=== PATIENT | male | born 1940 | race Caucasian/White ===

== ENCOUNTER 2017-01-02 09:08 | Inpatient (IN) | payer OTHER ==
[~2017-01-02] VITALS: Ht 152.4 cm; Wt 60.9 kg
[~2017-01-02 09:08] MED LIST: ADVAIR HFA120 INHALA IH; ALEVE220 M2 PO; ALLOPURINOL100 MG PO; AMLODIPINE BESYL5 MG PO; AMOX TR-K CLV1 EAC3 PO; ASPIRIN325 MG PO; CALCITRIOL0.25 MCG PO; COLCRYS0.6 MG PO; DUONEB 2.5-0.5 M3 ML PEP; ENDOCET 5-3251 EACH PO; FAMOTIDINE20 MG PO; FERROUS SULFAT325 MG PO; FOLIC ACID1 MG PO; GOUT; HEPARIN SO5000 UNITS SC; HYDROCODON-ACE1 EAC7 PO; PREDNISONE20 MG PO; PREDNISONE5 MG PO; SPIRIVA RESPIMAT4 GM IH; TAMSULOSIN HCL0.4 MG PO; THERAGRAN1 TABLET PO; TYLENOL REGULA325 MG PO; [UNRECOGNIZED DRUG - REMARK]
[2017-01-02 11:50] LABS: HEMATOCRIT 36.7 % (38.0-50.0); MCH 29.7 PG (29.0-34.0); MCHC 32.4 G/DL (30.0-36.0); MCV 91.5 FL (86-99); PLATELET COUNT 142 K/uL (156-360); RBC DIS.WIDTH-CV 14.3 % (11.8-14.6); RBC DIS.WIDTH-SD 48.5 % (39-53); RED BLOOD COUNT 4.01 M/uL (4.00-5.50); WHITE BLOOD COUNT 8.6 K/uL (4.1-10.2)
[2017-01-02 11:59] LABS: CHLORIDE 110 mEq/L (99-109); POTASSIUM 5.1 mEq/L (3.7-5.4); SODIUM 139 mEq/L (136-147)
[2017-01-02 12:00] LABS: GLUCOSE 101 mg/dL (70-99)
[2017-01-02 12:02] LABS: ANION GAP 9 MEQ/L (2-14)
[2017-01-02 12:04] LABS: GFR ESTIMATE (CALCULATED) 16 mL/min/
[2017-01-02 12:05] LABS: UREA NITROGEN (BUN) 44 mg/dL (9-23)
[2017-01-02 14:24] LABS: ERTH.SED.RATE 58 MM/HR (0-20)
[2017-01-02 14:34] LABS: C-REACTIVE PROTEIN 109.4 MG/L (0-10)
[2017-01-02 15:12] VITALS: BP 124/77
[2017-01-02 20:08] VITALS: BP 119/72
[2017-01-03] VITALS: BP 128/63
[2017-01-03 03:46] VITALS: BP 115/68
[2017-01-03 07:39] LABS: HEMATOCRIT 34.1 % (38.0-50.0); MCH 30.5 PG (29.0-34.0); MCHC 33.1 G/DL (30.0-36.0); MCV 91.9 FL (86-99); MEAN PLAT.VOLUME 9.7 uM^3 (9.0-12.4); PLATELET COUNT 144 K/uL (156-360); RBC DIS.WIDTH-CV 14.4 % (11.8-14.6); RBC DIS.WIDTH-SD 48.6 % (39-53); RED BLOOD COUNT 3.71 M/uL (4.00-5.50); WHITE BLOOD COUNT 4.9 K/uL (4.1-10.2)
[2017-01-03 08:04] LABS: ANION GAP 11 MEQ/L (2-14); CHLORIDE 109 MEQ/L (99-109); GFR ESTIMATE (CALCULATED) 18 mL/min/; GLUCOSE 140 mg/dL (70-99); POTASSIUM 5.4 MEQ/L (3.7-5.4); SAMPLE HEMOLYSIS CHECK 0; SAMPLE ICTERIC CHECK 0; SAMPLE LIPEMIA CHECK 0; SODIUM 137 MEQ/L (136-147); UREA NITROGEN (BUN) 46 mg/dL (9-23)
[2017-01-03 10:19] LABS: METH RESISTANT S AUREUS PCR NEGATIVE (NEGATIVE)
[2017-01-03 10:32] LABS: PROBE CHECK PASS; SPECIMEN PROCESSING CONTROL PASS
[2017-01-03 11:29] VITALS: BP 141/73
[2017-01-03 16:22] VITALS: BP 125/71
[2017-01-03 20:35] VITALS: BP 116/60
[2017-01-03 23:54] VITALS: BP 100/55
[2017-01-04 03:54] VITALS: BP 107/60
[2017-01-04 06:40] LABS: HEMATOCRIT 33.2 % (38.0-50.0); MCH 29.9 PG (29.0-34.0); MCHC 32.8 G/DL (30.0-36.0); MCV 91.2 FL (86-99); MEAN PLAT.VOLUME 9.7 uM^3 (9.0-12.4); PLATELET COUNT 184 K/uL (156-360); RBC DIS.WIDTH-CV 14.3 % (11.8-14.6); RBC DIS.WIDTH-SD 48.1 % (39-53); RED BLOOD COUNT 3.64 M/uL (4.00-5.50); WHITE BLOOD COUNT 10.5 K/uL (4.1-10.2)
[2017-01-04 07:09] LABS: ANION GAP 10 MEQ/L (2-14); CHLORIDE 111 MEQ/L (99-109); GFR ESTIMATE (CALCULATED) 16 mL/min/; GLUCOSE 144 mg/dL (70-99); POTASSIUM 5.1 MEQ/L (3.7-5.4); SAMPLE HEMOLYSIS CHECK 0; SAMPLE ICTERIC CHECK 0; SAMPLE LIPEMIA CHECK 0; SODIUM 141 MEQ/L (136-147); UREA NITROGEN (BUN) 60 mg/dL (9-23); VANCOMYCIN, TROUGH 10.8 MCG/ML (10-20)
[2017-01-04] MEDS ORDERED: COLCHICINE0.6 M1 PO (07:19)
[2017-01-04] MEDS ORDERED: PREDNISONE20 MG PO (07:20)
[2017-01-04 07:59] VITALS: BP 119/69
== END 2017-01-04 10:17 | disposition home or self-care (01) | DRG 554 ==
LOC: EME 09:08 → EDOF 13:20 → ENRESERV 13:22 → CANRESERV 13:22 → ENRESERV 13:32 → EDOF 13:33 → 3EAST 13:33 → EDOF 13:33 → 3EAST 13:33 → ENRESERV 13:59 → 3EAST 14:54
PROVIDERS: Emergency Medicine; Internal Medicine; Nurse Practitioner Adult Health
DX: M1A.9XX1 Chronic gout, unspecified, with tophus (tophi) (principal); E87.2 Acidosis; I12.9 Hypertensive chronic kidney disease with stage 1 through stage 4 chronic kidney disease, or unspecified chronic kidney disease; N18.4 Chronic kidney disease, stage 4 (severe); D69.6 Thrombocytopenia, unspecified; D64.9 Anemia, unspecified; M06.9 Rheumatoid arthritis, unspecified; Z79.899 Other long term (current) drug therapy; J44.9 Chronic obstructive pulmonary disease, unspecified; N40.0 Benign prostatic hyperplasia without lower urinary tract symptoms; M19.90 Unspecified osteoarthritis, unspecified site; Z60.2 Problems related to living alone; Z90.49 Acquired absence of other specified parts of digestive tract; Z87.891 Personal history of nicotine dependence; Z79.82 Long term (current) use of aspirin
CPT/HCPCS: 73130; 73218; 73560; 73630; 73718; 80048; 80069; 80202; 84550; 85027; 85651; 86140; 87040; 87070; 87075; 87077; 87147; 87186; 87205; 87641; 99281; 99285; J1956; J2270; J2405; J2920; J3370; S0028

== ENCOUNTER 2017-02-27 11:27 | Inpatient (IN) | payer OTHER ==
[~2017-02-27] VITALS: Ht 165.1 cm; Wt 66.7 kg
[~2017-02-27 11:27] MED LIST changes: +COLCHICINE0.6 M1 PO
[2017-02-27 12:59] LABS: HEMATOCRIT 26.9 % (38.0-50.0); MCH 29.9 PG (29.0-34.0); MCHC 32.3 G/DL (30.0-36.0); MCV 92.4 FL (86-99); MEAN PLAT.VOLUME 10.5 uM^3 (9.0-12.4); PLATELET COUNT 323 K/uL (156-360); RBC DIS.WIDTH-CV 15.1 % (11.8-14.6); RBC DIS.WIDTH-SD 51.9 % (39-53); RED BLOOD COUNT 2.91 M/uL (4.00-5.50); WHITE BLOOD COUNT 12.8 K/uL (4.1-10.2)
[2017-02-27 13:05] LABS: INTER. NORMALIZED RATIO 1.4; PROTHROMBIN TIME 15.9 SEC (10.2-12.9)
[2017-02-27 13:08] LABS: PTT 30.1 SEC (25-37)
[2017-02-27 13:10] LABS: CHLORIDE 105 mEq/L (99-109); POTASSIUM 5.3 mEq/L (3.7-5.4); SODIUM 139 mEq/L (136-147)
[2017-02-27 13:12] LABS: GLUCOSE 121 mg/dL (70-99)
[2017-02-27 13:13] LABS: ANION GAP 18 MEQ/L (2-14)
[2017-02-27 13:14] LABS: TOTAL BILIRUBIN 1.5 mg/dL (0.0-1.0)
[2017-02-27 13:16] LABS: ALKALINE PHOSPHATASE 112 IU/L (3-129); GFR ESTIMATE (CALCULATED) 9 mL/min/
[2017-02-27 13:28] LABS: UREA NITROGEN (BUN) 121 mg/dL (9-23)
[2017-02-27 16:05] LABS: BASE EXCESS -9.9 mEq/L (-3 to +3); BICARBONATE 13.3 mEq/L (22-26); CARBOXY HGB 1.3 % (0-5); PCO2 22 mm Hg (35-45); PO2 85 mm Hg (80-100); pH 7.39 (7.35-7.45)
[2017-02-27] MEDS ORDERED: LO-DOSE ASPIRIN81 M1 PO (16:05)
[2017-02-27] MEDS ORDERED: GABAPENTIN300 MG PO (16:05)
[2017-02-27 16:06] LABS: COMMENTS - BLOOD GASES A+C+; SITE RR
[2017-02-27] MEDS ORDERED: ULORIC80 MG PO (16:06)
[2017-02-27 16:07] LABS: TOTAL RESP RATE 16 resp/min
[2017-02-27] MEDS ORDERED: TYLENOL REGULA325 MG PO (16:07)
[2017-02-28 05:45] LABS: POTASSIUM 4.6 mEq/L (3.7-5.4); SODIUM 144 mEq/L (136-147)
[2017-02-28 05:51] LABS: GFR ESTIMATE (CALCULATED) 11 mL/min/
[2017-02-28 05:52] LABS: ALKALINE PHOSPHATASE 81 IU/L (3-129); CHLORIDE 117 mEq/L (99-109); GLUCOSE 88 mg/dL (70-99)
[2017-02-28 05:59] LABS: HEMATOCRIT 27.1 % (38.0-50.0); MCH 29.4 PG (29.0-34.0); MCHC 31.7 G/DL (30.0-36.0); MCV 92.5 FL (86-99); MEAN PLAT.VOLUME 10.2 uM^3 (9.0-12.4); PLATELET COUNT 229 K/uL (156-360); RBC DIS.WIDTH-CV 15.3 % (11.8-14.6); RBC DIS.WIDTH-SD 52.3 % (39-53); RED BLOOD COUNT 2.93 M/uL (4.00-5.50); WHITE BLOOD COUNT 6.8 K/uL (4.1-10.2)
[2017-02-28 06:14] LABS: UREA NITROGEN (BUN) 113 mg/dL (9-23)
[2017-02-28 06:18] LABS: ANION GAP 13 MEQ/L (2-14)
[2017-02-28 07:27] LABS: ADD MIUA? YES; BILIRUBIN NEGATIVE; BLOOD SMALL; COLOR YELLOW ((YELLOW)); GLUCOSE (STRIP) NEGATIVE; KETONES NEGATIVE; LEUKOCYTES TRACE; NITRITE NEGATIVE; PROTEIN (STRIP) NEGATIVE; SPECIFIC GRAVITY 1.014 (1.000-1.030)
[2017-02-28 07:37] LABS: BACTERIA 1+ /HPF; CALCIUM OXALATE CRYSTALS 1+ /HPF; EPITHELIAL CELLS RARE /HPF; MUCUS TRACE /LPF; RED BLOOD CELLS 0-5 /HPF (0-5); UCUL ADDED? NO; WHITE BLOOD CELLS 0-5 /HPF (0-5)
[2017-02-28 07:51] VITALS: BP 109/63
[2017-02-28 11:23] VITALS: BP 119/55
[2017-02-28 13:24] VITALS: BP 125/60
[2017-02-28 15:37] VITALS: BP 128/62
[2017-02-28 19:31] VITALS: BP 102/50
[2017-02-28 23:38] VITALS: BP 115/62
[2017-03-01 06:31] LABS: EOSINOPHIL (%) 1.3 % (0-5); EOSINOPHIL COUNT 0.1 K/uL (0-0.3); HEMATOCRIT 24.3 % (38.0-50.0); IMMATURE GRANULOCYTE (%) 0.8 % (0.0-0.7); IMMATURE GRANULOCYTE COUNT 0.1 K/uL; INSTRUMENT ABS NEUTROPHIL CT 4.9 K/uL; LYMPHOCYTE COUNT 0.6 K/uL (1.0-2.8); MCH 30.5 PG (29.0-34.0); MCHC 32.5 G/DL (30.0-36.0); MCV 93.8 FL (86-99); MEAN PLAT.VOLUME 10.3 uM^3 (9.0-12.4); MONOCYTE (%) 6.6 % (3-12); MONOCYTE COUNT 0.4 K/uL (0-0.8); NEUTROPHIL (%) 80.9 % (45-76); NEUTROPHIL COUNT 4.9 K/uL (1.8-6.4); PLATELET COUNT 233 K/uL (156-360); RBC DIS.WIDTH-CV 15.6 % (11.8-14.6); RBC DIS.WIDTH-SD 54.2 % (39-53); RED BLOOD COUNT 2.59 M/uL (4.00-5.50); WHITE BLOOD COUNT 6.1 K/uL (4.1-10.2)
[2017-03-01 07:41] VITALS: BP 115/57
[2017-03-01 07:49] LABS: ALKALINE PHOSPHATASE 78 IU/L (3-129); ANION GAP 13 MEQ/L (2-14); CHLORIDE 118 MEQ/L (99-109); GFR ESTIMATE (CALCULATED) 12 mL/min/; POTASSIUM 4.7 MEQ/L (3.7-5.4); SAMPLE HEMOLYSIS CHECK 0; SAMPLE ICTERIC CHECK 0; SAMPLE LIPEMIA CHECK 0; SODIUM 147 MEQ/L (136-147); TOTAL BILIRUBIN 1.1 MG/DL (0.0-1.0); VANCOMYCIN, TROUGH 12.7 MCG/ML (10-20)
[2017-03-01 07:50] LABS: GLUCOSE 120 mg/dL (70-99); UREA NITROGEN (BUN) 101 mg/dL (9-23)
[2017-03-01 14:09] VITALS: BP 116/59
[2017-03-01 15:25] VITALS: BP 117/59
[2017-03-01 20:58] VITALS: BP 121/60
[2017-03-01 21:04] VITALS: BP 121/60
[2017-03-02 00:22] VITALS: BP 115/54
[2017-03-02 04:31] VITALS: BP 109/55
[2017-03-02 06:47] LABS: EOSINOPHIL (%) 0.1 % (0-5); HEMATOCRIT 25.5 % (38.0-50.0); IMMATURE GRANULOCYTE (%) 1.3 % (0.0-0.7); IMMATURE GRANULOCYTE COUNT 0.1 K/uL; INSTRUMENT ABS NEUTROPHIL CT 5.8 K/uL; LYMPHOCYTE COUNT 0.6 K/uL (1.0-2.8); MCH 29.2 PG (29.0-34.0); MCHC 30.6 G/DL (30.0-36.0); MCV 95.5 FL (86-99); MEAN PLAT.VOLUME 10.1 uM^3 (9.0-12.4); MONOCYTE (%) 5.4 % (3-12); MONOCYTE COUNT 0.4 K/uL (0-0.8); NEUTROPHIL (%) 84.4 % (45-76); NEUTROPHIL COUNT 5.8 K/uL (1.8-6.4); PLATELET COUNT 267 K/uL (156-360); RBC DIS.WIDTH-CV 15.9 % (11.8-14.6); RBC DIS.WIDTH-SD 55.1 % (39-53); RED BLOOD COUNT 2.67 M/uL (4.00-5.50); WHITE BLOOD COUNT 6.8 K/uL (4.1-10.2)
[2017-03-02 07:22] LABS: ALKALINE PHOSPHATASE 67 IU/L (3-129); ANION GAP 11 MEQ/L (2-14); CHLORIDE 118 MEQ/L (99-109); GFR ESTIMATE (CALCULATED) 13 mL/min/; GLUCOSE 108 mg/dL (70-99); POTASSIUM 4.9 MEQ/L (3.7-5.4); SAMPLE HEMOLYSIS CHECK 0; SAMPLE ICTERIC CHECK 0; SAMPLE LIPEMIA CHECK 0; SODIUM 147 MEQ/L (136-147); UREA NITROGEN (BUN) 88 mg/dL (9-23)
[2017-03-02 07:33] LABS: TOTAL BILIRUBIN 0.8 MG/DL (0.0-1.0); VANCOMYCIN, TROUGH 19.2 MCG/ML (10-20)
[2017-03-02 08:00] VITALS: BP 122/56
[2017-03-02 12:17] LABS: POINT-OF-CARE METER ID UU14208753
[2017-03-02 15:30] VITALS: BP 135/66
[2017-03-02 19:09] VITALS: BP 124/58
[2017-03-02 23:14] VITALS: BP 126/60
[2017-03-03 04:53] VITALS: BP 128/64
[2017-03-03 06:34] LABS: HEMATOCRIT 25.9 % (38.0-50.0); MCH 30.4 PG (29.0-34.0); MCHC 31.7 G/DL (30.0-36.0); MCV 95.9 FL (86-99); PLATELET COUNT 313 K/uL (156-360); RBC DIS.WIDTH-CV 15.9 % (11.8-14.6); RBC DIS.WIDTH-SD 55.8 % (39-53); WHITE BLOOD COUNT 8.5 K/uL (4.1-10.2)
[2017-03-03 07:02] LABS: ALKALINE PHOSPHATASE 70 IU/L (3-129); ANION GAP 13 MEQ/L (2-14); CHLORIDE 121 MEQ/L (99-109); GFR ESTIMATE (CALCULATED) 14 mL/min/; GLUCOSE 82 mg/dL (70-99); POTASSIUM 5.1 MEQ/L (3.7-5.4); SAMPLE HEMOLYSIS CHECK 0; SAMPLE ICTERIC CHECK 0; SAMPLE LIPEMIA CHECK 0; SODIUM 148 MEQ/L (136-147); TOTAL BILIRUBIN 0.8 MG/DL (0.0-1.0); UREA NITROGEN (BUN) 83 mg/dL (9-23)
[2017-03-03 07:47] VITALS: BP 130/69
[2017-03-03 11:19] VITALS: BP 117/60
[2017-03-03 15:18] VITALS: BP 118/58
[2017-03-03 16:42] LABS: URIC ACID 8.2 mg/dL (3.1-9.2)
[2017-03-03 19:46] VITALS: BP 128/58
[2017-03-03 23:29] LABS: C DIFF TOXIN NEGATIVE (NEGATIVE)
[2017-03-03 23:32] LABS: PROBE CHECK PASS; SPECIMEN PROCESSING CONTROL PASS
[2017-03-03 23:42] VITALS: BP 142/72
[2017-03-04 00:22] VITALS: BP 134/74
[2017-03-04 04:41] VITALS: BP 134/67
[2017-03-04 06:37] LABS: EOSINOPHIL (%) 1.1 % (0-5); EOSINOPHIL COUNT 0.1 K/uL (0-0.3); HEMATOCRIT 26.6 % (38.0-50.0); IMMATURE GRANULOCYTE (%) 1.9 % (0.0-0.7); IMMATURE GRANULOCYTE COUNT 0.2 K/uL; INSTRUMENT ABS NEUTROPHIL CT 7.1 K/uL; LYMPHOCYTE COUNT 0.8 K/uL (1.0-2.8); MCH 29.2 PG (29.0-34.0); MCHC 30.5 G/DL (30.0-36.0); MEAN PLAT.VOLUME 9.7 uM^3 (9.0-12.4); MONOCYTE (%) 4.5 % (3-12); MONOCYTE COUNT 0.4 K/uL (0-0.8); NEUTROPHIL (%) 82.8 % (45-76); NEUTROPHIL COUNT 7.1 K/uL (1.8-6.4); PLATELET COUNT 296 K/uL (156-360); RBC DIS.WIDTH-CV 15.8 % (11.8-14.6); RBC DIS.WIDTH-SD 55.9 % (39-53); RED BLOOD COUNT 2.77 M/uL (4.00-5.50); WHITE BLOOD COUNT 8.5 K/uL (4.1-10.2)
[2017-03-04 06:57] LABS: ANION GAP 13 MEQ/L (2-14); CHLORIDE 118 MEQ/L (99-109); GFR ESTIMATE (CALCULATED) 15 mL/min/; GLUCOSE 100 mg/dL (70-99); MAGNESIUM 2.1 mg/dl (1.3-2.7); POTASSIUM 5.1 MEQ/L (3.7-5.4); SAMPLE HEMOLYSIS CHECK 0; SAMPLE ICTERIC CHECK 0; SAMPLE LIPEMIA CHECK 0; SODIUM 148 MEQ/L (136-147); UREA NITROGEN (BUN) 68 mg/dL (9-23)
[2017-03-04 07:54] VITALS: BP 148/79
[2017-03-04 15:27] VITALS: BP 122/61
[2017-03-04 19:15] VITALS: BP 121/63
[2017-03-04 23:32] VITALS: BP 117/60
[2017-03-05 06:53] LABS: HEMATOCRIT 29.7 % (38.0-50.0); MCHC 31.6 G/DL (30.0-36.0); MCV 94.9 FL (86-99); MEAN PLAT.VOLUME 9.5 uM^3 (9.0-12.4); PLATELET COUNT 291 K/uL (156-360); RBC DIS.WIDTH-CV 15.9 % (11.8-14.6); RBC DIS.WIDTH-SD 54.9 % (39-53); RED BLOOD COUNT 3.13 M/uL (4.00-5.50); WHITE BLOOD COUNT 9.1 K/uL (4.1-10.2)
[2017-03-05 07:21] LABS: GLUCOSE 129 mg/dL (70-99); UREA NITROGEN (BUN) 70 mg/dL (9-23)
[2017-03-05 07:22] LABS: ANION GAP 12 MEQ/L (2-14); CHLORIDE 118 MEQ/L (99-109); GFR ESTIMATE (CALCULATED) 17 mL/min/; MAGNESIUM 2.1 mg/dl (1.3-2.7); POTASSIUM 4.9 MEQ/L (3.7-5.4); SAMPLE HEMOLYSIS CHECK 0; SAMPLE ICTERIC CHECK 0; SAMPLE LIPEMIA CHECK 0; SODIUM 150 MEQ/L (136-147)
[2017-03-05 08:12] VITALS: BP 129/85
[2017-03-05 12:01] VITALS: BP 110/57
[2017-03-05 15:52] VITALS: BP 120/58
[2017-03-05 19:44] VITALS: BP 116/64
[2017-03-06] VITALS (7 sets, daily range): BP systolic 126–150; BP diastolic 62–72
[2017-03-06 06:52] LABS: HEMATOCRIT 31.8 % (38.0-50.0); MCH 28.8 PG (29.0-34.0); MCHC 30.2 G/DL (30.0-36.0); MCV 95.5 FL (86-99); MEAN PLAT.VOLUME 9.5 uM^3 (9.0-12.4); PLATELET COUNT 301 K/uL (156-360); RBC DIS.WIDTH-SD 56.7 % (39-53); RED BLOOD COUNT 3.33 M/uL (4.00-5.50)
[2017-03-06 10:20] LABS: ANION GAP 12 MEQ/L (2-14); CHLORIDE 117 MEQ/L (99-109); POTASSIUM 4.3 MEQ/L (3.7-5.4); SAMPLE HEMOLYSIS CHECK 0; SAMPLE ICTERIC CHECK 0; SAMPLE LIPEMIA CHECK 0; SODIUM 150 MEQ/L (136-147)
[2017-03-06 10:28] LABS: GFR ESTIMATE (CALCULATED) 18 mL/min/; UREA NITROGEN (BUN) 62 mg/dL (9-23)
[2017-03-06 10:31] LABS: GLUCOSE 86 mg/dL (70-99)
[2017-03-07 03:40] VITALS: BP 143/74
[2017-03-07 06:08] LABS: HEMATOCRIT 27.6 % (38.0-50.0); MCH 28.9 PG (29.0-34.0); MCHC 30.4 G/DL (30.0-36.0); MCV 94.8 FL (86-99); MEAN PLAT.VOLUME 8.8 uM^3 (9.0-12.4); PLATELET COUNT 263 K/uL (156-360); RBC DIS.WIDTH-CV 16.1 % (11.8-14.6); RBC DIS.WIDTH-SD 55.8 % (39-53); RED BLOOD COUNT 2.91 M/uL (4.00-5.50); WHITE BLOOD COUNT 7.6 K/uL (4.1-10.2)
[2017-03-07 06:32] LABS: ALKALINE PHOSPHATASE 42 IU/L (3-129); ANION GAP 9 MEQ/L (2-14); CHLORIDE 118 MEQ/L (99-109); GFR ESTIMATE (CALCULATED) 19 mL/min/; GLUCOSE 80 mg/dL (70-99); POTASSIUM 3.7 MEQ/L (3.7-5.4); SAMPLE HEMOLYSIS CHECK 0; SAMPLE ICTERIC CHECK 0; SAMPLE LIPEMIA CHECK 0; SODIUM 148 MEQ/L (136-147); TOTAL BILIRUBIN 0.9 MG/DL (0.0-1.0); UREA NITROGEN (BUN) 52 mg/dL (9-23)
[2017-03-07 08:45] VITALS: BP 139/68
[2017-03-07 11:52] VITALS: BP 132/64
[2017-03-07 16:08] VITALS: BP 124/74
[2017-03-07 19:18] VITALS: BP 132/61
[2017-03-07 22:54] VITALS: BP 128/82
[2017-03-08 04:10] VITALS: BP 146/70
[2017-03-08 06:54] LABS: EOSINOPHIL (%) 1.6 % (0-5); EOSINOPHIL COUNT 0.1 K/uL (0-0.3); HEMATOCRIT 28.5 % (38.0-50.0); IMMATURE GRANULOCYTE (%) 2.5 % (0.0-0.7); IMMATURE GRANULOCYTE COUNT 0.2 K/uL; INSTRUMENT ABS NEUTROPHIL CT 5.7 K/uL; LYMPHOCYTE COUNT 0.9 K/uL (1.0-2.8); MCH 29.8 PG (29.0-34.0); MCHC 30.9 G/DL (30.0-36.0); MCV 96.6 FL (86-99); MEAN PLAT.VOLUME 9.5 uM^3 (9.0-12.4); MONOCYTE (%) 4.6 % (3-12); MONOCYTE COUNT 0.3 K/uL (0-0.8); NEUTROPHIL (%) 78.2 % (45-76); NEUTROPHIL COUNT 5.7 K/uL (1.8-6.4); PLATELET COUNT 239 K/uL (156-360); RBC DIS.WIDTH-CV 16.3 % (11.8-14.6); RBC DIS.WIDTH-SD 57.8 % (39-53); RED BLOOD COUNT 2.95 M/uL (4.00-5.50); WHITE BLOOD COUNT 7.3 K/uL (4.1-10.2)
[2017-03-08 07:19] LABS: ANION GAP 11 MEQ/L (2-14); CHLORIDE 117 MEQ/L (99-109); GFR ESTIMATE (CALCULATED) 20 mL/min/; GLUCOSE 82 mg/dL (70-99); SAMPLE HEMOLYSIS CHECK 1; SAMPLE ICTERIC CHECK 0; SAMPLE LIPEMIA CHECK 0; SODIUM 146 MEQ/L (136-147); UREA NITROGEN (BUN) 44 mg/dL (9-23)
[2017-03-08 08:31] VITALS: BP 152/66
[2017-03-08 12:19] VITALS: BP 148/67
[2017-03-08 16:57] VITALS: BP 127/61
[2017-03-08 19:29] VITALS: BP 143/67
[2017-03-08 23:21] VITALS: BP 146/67
[2017-03-09 03:55] VITALS: BP 149/69
[2017-03-09 06:14] LABS: EOSINOPHIL (%) 1.5 % (0-5); EOSINOPHIL COUNT 0.1 K/uL (0-0.3); HEMATOCRIT 28.2 % (38.0-50.0); IMMATURE GRANULOCYTE (%) 2.6 % (0.0-0.7); IMMATURE GRANULOCYTE COUNT 0.2 K/uL; INSTRUMENT ABS NEUTROPHIL CT 5.3 K/uL; LYMPHOCYTE COUNT 0.8 K/uL (1.0-2.8); MCH 29.3 PG (29.0-34.0); MCHC 30.5 G/DL (30.0-36.0); MCV 95.9 FL (86-99); MEAN PLAT.VOLUME 8.9 uM^3 (9.0-12.4); MONOCYTE (%) 5.4 % (3-12); MONOCYTE COUNT 0.4 K/uL (0-0.8); NEUTROPHIL (%) 77.8 % (45-76); NEUTROPHIL COUNT 5.3 K/uL (1.8-6.4); PLATELET COUNT 206 K/uL (156-360); RBC DIS.WIDTH-CV 16.2 % (11.8-14.6); RBC DIS.WIDTH-SD 57.2 % (39-53); RED BLOOD COUNT 2.94 M/uL (4.00-5.50); WHITE BLOOD COUNT 6.8 K/uL (4.1-10.2)
[2017-03-09 06:39] LABS: ANION GAP 10 MEQ/L (2-14); CHLORIDE 116 MEQ/L (99-109); GFR ESTIMATE (CALCULATED) 21 mL/min/; GLUCOSE 84 mg/dL (70-99); POTASSIUM 3.2 MEQ/L (3.7-5.4); SAMPLE HEMOLYSIS CHECK 0; SAMPLE ICTERIC CHECK 0; SAMPLE LIPEMIA CHECK 0; SODIUM 145 MEQ/L (136-147); UREA NITROGEN (BUN) 36 mg/dL (9-23)
[2017-03-09 07:00] VITALS: BP 128/54
[2017-03-09 11:57] VITALS: BP 141/74
[2017-03-09 16:22] VITALS: BP 146/67
[2017-03-09 20:03] VITALS: BP 125/63
[2017-03-09 23:45] VITALS: BP 138/75
[2017-03-10 03:27] VITALS: BP 129/64
[2017-03-10 05:53] LABS: EOSINOPHIL COUNT 0.1 K/uL (0-0.3); HEMATOCRIT 27.9 % (38.0-50.0); IMMATURE GRANULOCYTE COUNT 0.2 K/uL; INSTRUMENT ABS NEUTROPHIL CT 6.2 K/uL; LYMPHOCYTE COUNT 0.8 K/uL (1.0-2.8); MCH 29.1 PG (29.0-34.0); MCHC 30.1 G/DL (30.0-36.0); MCV 96.5 FL (86-99); MEAN PLAT.VOLUME 9.4 uM^3 (9.0-12.4); MONOCYTE (%) 5.4 % (3-12); MONOCYTE COUNT 0.4 K/uL (0-0.8); NEUTROPHIL (%) 80.5 % (45-76); NEUTROPHIL COUNT 6.2 K/uL (1.8-6.4); PLATELET COUNT 206 K/uL (156-360); RBC DIS.WIDTH-CV 16.5 % (11.8-14.6); RBC DIS.WIDTH-SD 57.8 % (39-53); RED BLOOD COUNT 2.89 M/uL (4.00-5.50); WHITE BLOOD COUNT 7.6 K/uL (4.1-10.2)
[2017-03-10 06:15] LABS: ANION GAP 13 MEQ/L (2-14); CHLORIDE 117 MEQ/L (99-109); GFR ESTIMATE (CALCULATED) 22 mL/min/; GLUCOSE 69 mg/dL (70-99); MAGNESIUM 1.8 mg/dl (1.3-2.7); POTASSIUM 3.5 MEQ/L (3.7-5.4); SAMPLE HEMOLYSIS CHECK 0; SAMPLE ICTERIC CHECK 0; SAMPLE LIPEMIA CHECK 0; SODIUM 147 MEQ/L (136-147); UREA NITROGEN (BUN) 29 mg/dL (9-23)
[2017-03-10 06:16] LABS: URIC ACID 4.6 mg/dL (3.1-9.2)
[2017-03-10 07:42] VITALS: BP 141/63
[2017-03-10] MEDS ORDERED: FERROUS SULFAT325 MG PO (10:18)
[2017-03-10] MEDS ORDERED: TAMSULOSIN HCL0.4 MG PO (10:18)
[2017-03-10] MEDS ORDERED: ADVAIR HFA120 INHALA IH (10:21)
[2017-03-10] MEDS ORDERED: POLYETHYLENE GL17 GM PO (10:21)
[2017-03-10] MEDS ORDERED: SENNA PLUS TAB1 EACH PO (10:21)
[2017-03-10] MEDS ORDERED: SOD CITRATE-CI473 ML PO (10:21)
[2017-03-10] MEDS ORDERED: THERAGRAN1 TABLET PO (10:22)
[2017-03-10] MEDS ORDERED: FAMOTIDINE20 MG PO (10:22)
[2017-03-10] MEDS ORDERED: FOLIC ACID1 MG PO (10:22)
[2017-03-10] MEDS ORDERED: CALCITRIOL0.25 MCG PO (10:22)
[2017-03-10] MEDS ORDERED: PHENADOZ25 MG PR (10:23)
[2017-03-10] MEDS ORDERED: HYDROCODON-ACE1 EAC7 PO (10:24)
[2017-03-10] MEDS ORDERED: HYDROCODON-ACE1 EAC9 PO (10:24)
[2017-03-10 11:55] VITALS: BP 144/67
[2017-03-10 15:44] VITALS: BP 146/67
[2017-03-10 23:53] VITALS: BP 127/63
[2017-03-11 05:46] LABS: HEMATOCRIT 26.8 % (38.0-50.0); MCH 30.6 PG (29.0-34.0); MCHC 32.1 G/DL (30.0-36.0); MCV 95.4 FL (86-99); MEAN PLAT.VOLUME 9.6 uM^3 (9.0-12.4); PLATELET COUNT 179 K/uL (156-360); RBC DIS.WIDTH-CV 16.9 % (11.8-14.6); RBC DIS.WIDTH-SD 57.6 % (39-53); RED BLOOD COUNT 2.81 M/uL (4.00-5.50); WHITE BLOOD COUNT 7.1 K/uL (4.1-10.2)
[2017-03-11 07:56] VITALS: BP 156/74
== END 2017-03-11 13:49 | DRG 503 ==
LOC: EME 11:27 → EDOF 15:23 → ENRESERV 15:25 → EDOF 18:30 → ENRESERV 21:39 → EDOF 02-28 07:11 → 3EAST 02-28 11:03 → ENRESERV 02-28 11:07 → 3EAST 02-28 13:07
PROVIDERS: Emergency Medicine; Internal Medicine; Internal Medicine Nephrology
PROC: 0Y6Q0Z3 Detachment at Left 1st Toe, Low, Open Approach (ICD-10-PCS; principal; 2017-03-01)
DX: M86.472 Chronic osteomyelitis with draining sinus, left ankle and foot (principal); N17.0 Acute kidney failure with tubular necrosis; R65.11 Systemic inflammatory response syndrome (SIRS) of non-infectious origin with acute organ dysfunction; N18.6 End stage renal disease; L02.612 Cutaneous abscess of left foot; N13.8 Other obstructive and reflux uropathy; N13.30 Unspecified hydronephrosis; L03.116 Cellulitis of left lower limb; M00.9 Pyogenic arthritis, unspecified; Z51.5 Encounter for palliative care; Z66 Do not resuscitate; F05 Delirium due to known physiological condition; I12.0 Hypertensive chronic kidney disease with stage 5 chronic kidney disease or end stage renal disease; E87.2 Acidosis; D63.8 Anemia in other chronic diseases classified elsewhere; Z91.14 Patient's other noncompliance with medication regimen; E86.0 Dehydration; D69.6 Thrombocytopenia, unspecified; M06.9 Rheumatoid arthritis, unspecified; M1A.9XX1 Chronic gout, unspecified, with tophus (tophi); J44.9 Chronic obstructive pulmonary disease, unspecified; K59.00 Constipation, unspecified; F03.90 Unspecified dementia, unspecified severity, without behavioral disturbance, psychotic disturbance, mood disturbance, and anxiety; E78.5 Hyperlipidemia, unspecified; E87.6 Hypokalemia; F43.20 Adjustment disorder, unspecified; G89.29 Other chronic pain; I35.0 Nonrheumatic aortic (valve) stenosis; M19.90 Unspecified osteoarthritis, unspecified site; N31.8 Other neuromuscular dysfunction of bladder; N39.490 Overflow incontinence; N40.0 Benign prostatic hyperplasia without lower urinary tract symptoms; R33.9 Retention of urine, unspecified; L97.524 Non-pressure chronic ulcer of other part of left foot with necrosis of bone; B35.3 Tinea pedis; Z86.73 Personal history of transient ischemic attack (TIA), and cerebral infarction without residual deficits; Z91.19 Patient's noncompliance with other medical treatment and regimen; Z90.49 Acquired absence of other specified parts of digestive tract
CPT/HCPCS: 36600; 71020; 73560; 73630; 73718; 74176; 76770; 80048; 80053; 80202; 81003; 82803; 82948; 83605; 83735; 84100; 84550; 85025; 85027; 85610; 85730; 87040; 87070; 87075; 87077; 87102; 87147; 87186; 87205; 87493; 88305; 93005; 94640; 94640 76; 94799; 97530 GO; 97530 GP; 99202; 99281; 99284; J0330; J1100; J1170; J1644; J2405; J2543; J3010; J3370; J7030; J7050; J7512; S0032